=== PATIENT | female | born 1985 | race Caucasian/White ===

== ENCOUNTER 2024-07-29 22:32 | Emergency (ER) | payer MEDICAID ==
[~2024-07-29] VITALS: Ht 170.2 cm; Wt 135.0 kg
[2024-07-29] MEDS ORDERED: CYCLOBENZAPRINE HCL 10 MG TAB PO ONE (23:30)
[2024-07-29 23:43] LABS: BASOPHILS 0.7 % (0.1-1.2); EOSINOPHILS 1.4 % (0.7-5.8); HEMATOCRIT 36.4 % (34.1-44.9); HEMOGLOBIN 11.7 g/dL (11.2-15.7); LYMPHOCYTES 31.3 % (19.3-51.7); MCH 27.5 PG (25.6-32.2); MCHC 32.1 g/dL (32.2-35.5); MCV 85.4 fL (79.4-94.8); NEUTROPHILS 60.4 % (34.0-71.1); PLATELET COUNT 288 K/uL (182-369); RBC 4.26 M/uL (3.93-5.22)
[2024-07-30 00:03] LABS: ALBUMIN 3.3 g/dL (3.4-5.0); ALBUMIN/GLOBULIN RATIO 0.67 (1.1-2.4); BILIRUBIN, TOTAL 0.4 mg/dL (0.2-1.0); BUN/CREATININE RATIO 24.65 (6.0-28.6); CALCIUM 9.2 mg/dL (8.5-10.1); CREATININE, SERUM 0.73 mg/dL (0.55-1.02); PROTEIN, TOTAL 8.2 g/dL (6.4-8.2)
[2024-07-30] MEDS ORDERED: KETOROLAC TROMETHAMINE 30 MG/ML VIAL IV ONE (01:30)
[2024-07-30] MEDS ORDERED: CYCLOBENZAPRINE HCL 10 MG HOME.PACK PO ONE (01:30)
[2024-07-30] MEDS ORDERED: CYCLOBENZAPRINE10 MG PO (01:38)
[2024-07-30 02:06] VITALS: BP 132/76
--- NOTE | 2024-07-31 13:03 | EKG ---
[facility] [address] [place] [address] Signed Sinus rhythm with 1st degree AV block Otherwise normal ECG No previous ECGs available Confirmed by Tano Loja MD ([id number]) on 07/31/2024 1:03:03 PM Electronically Signed By: TANO LOJA MD 07/31/24 1303 PATIENT NAME: KIMBERLYMIGUELCONRAD CLEVELANDE Electrocardiogram DATE OF : 87 PHYSICIAN: TANO LOJA MD REPORT #: [id number] REPORT IS CONFIDENTIAL AND NOT TO BE RELEASED WITHOUT AUTHORIZATION
== END 2024-07-30 02:06 | disposition home or self-care (01) ==
LOC: ED 22:32
PROVIDERS: Internal Medicine
DX: M62.830 Muscle spasm of back (principal)
CPT/HCPCS: 36415; 71260; 80053; 84484; 85025; 85379; 93005; 93010; 99284-25; Q9967